=== PATIENT | male | born 1955 | race Caucasian/White ===

== ENCOUNTER 2019-05-26 12:35 | Inpatient (IN) | payer OTHER ==
[2019-05-26] MEDS: ALBUTEROL SULFATE 0.083% NEB 2.5 MG/3 ML AMPUL NEB SCH ×2 (13:02→13:24)
[2019-05-26] MEDS ORDERED: NORMAL SALINE 1000 ML 1,000 ML IV ONE ×2 (13:09→13:58)
[2019-05-26 13:12] LABS: ABSOLUTE BASOPHILS # (AUTO) 0.1 10^3/uL (0.0-0.2); ABSOLUTE LYMPHOCYTES (AUTO) 1.4 10^3/uL (0.5-4.7); ABSOLUTE MONOCYTES (AUTO) 0.9 10^3/uL (0.1-1.4); ABSOLUTE NEUT (AUTO) 8.9 10^3/uL (1.7-8.2); BASOPHILS % (AUTO) 0.9 % (0-2); EOSINOPHILS % (AUTO) 0.4 % (0-6); HEMOGLOBIN 14.9 g/dL (13.5-17.0); LYMPHOCYTES % (AUTO) 12.6 % (13-45); MEAN CORPUSCULAR HEMOGLOBIN 30.6 pg (27.0-33.4); MEAN CORPUSCULAR HGB CONC 33.9 g/dL (32.0-36.0); MEAN CORPUSCULAR VOLUME 90 fl (80-97); MONOCYTES % (AUTO) 8.1 % (3-13); PLATELET COUNT 184 10^3/uL (150-450); RED BLOOD COUNT 4.88 10^6/uL (4.35-5.55); RED CELL DISTRIBUTION WIDTH 13.8 % (11.5-14.0); TOTAL CELLS COUNTED % (AUTO) 100 %; WHITE BLOOD COUNT 11.4 10^3/uL (4.0-10.5)
[2019-05-26 13:23] LABS: PROTHROMBIN TIME 15.3 SEC (11.4-15.4)
[2019-05-26 13:35] LABS: ALBUMIN 4.2 g/dL (3.5-5.0); ALKALINE PHOSPHATASE 92 U/L (38-126); ANION GAP 13 (5-19); ASPARTATE AMINO TRANSFERASE 20 U/L (17-59); BILIRUBIN,DIRECT 0.3 mg/dL (0.0-0.4); BLOOD UREA NITROGEN 17 mg/dL (7-20); CALCIUM 9.3 mg/dL (8.4-10.2); CARBON DIOXIDE 24 mmol/L (22-30); CHLORIDE 99 mmol/L (98-107); GLUCOSE 107 mg/dL (75-110); POTASSIUM 4.4 mmol/L (3.6-5.0); TOTAL PROTEIN 7.3 g/dL (6.3-8.2)
--- NOTE | 2019-05-26 13:55 | RADIOLOGY REPORT (SQ) ---
EXAM DESCRIPTION: CHEST SINGLE VIEW COMPLETED DATE/TIME: 05/26/2019 1:10 pm REASON FOR STUDY: bed 2 abd pain COMPARISON: None. NUMBER OF VIEWS: One view. TECHNIQUE: Single frontal radiographic view of the chest acquired. LIMITATIONS: None. FINDINGS: LUNGS AND PLEURA: No opacities, masses or pneumothorax. No pleural effusion. MEDIASTINUM AND HILAR STRUCTURES: No masses. Contour normal. HEART AND VASCULAR STRUCTURES: Heart enlarged without failure. Normal vasculature. BONES: No acute findings. HARDWARE: CABG. OTHER: No other significant finding. IMPRESSION: No acute findings in the chest. TECHNICAL DOCUMENTATION: JOB ID: [id number] [employer] All Rights Reserved Reading location - IP/workstation name: [email or web address]
[2019-05-26] MEDS ORDERED: ONDANSETRON HCL INJ/PF 4 MG/2 ML SDV IV ONE (13:58)
[2019-05-26] MEDS ORDERED: MORPHINE SULFATE 10 MG/ML INJ IV ONE (13:58)
--- NOTE | 2019-05-26 14:03 | EKG REPORT ---
SEVERITY:- ABNORMAL ECG - WIDE COMPLEX TACHYCARDIA RIGHT BUNDLE BRANCH BLOCK OLD INFERIOR [place] : Confirmed by: James Santos MD 26-May-2019 14:02:20
[2019-05-26 14:40] LABS: VENOUS BLOOD BASE EXCESS -3.6 mmol/L; VENOUS BLOOD PCO2 47.1 mmHg (35-63); VENOUS BLOOD PH 7.31 (7.30-7.42)
--- NOTE | 2019-05-26 16:53 | RADIOLOGY REPORT (SQ) ---
EXAM DESCRIPTION: CT ABD/PELVIS WITH IV ORAL COMPLETED DATE/TIME: 05/26/2019 4:29 pm REASON FOR STUDY: diffuse pain/vomiting COMPARISON: None. TECHNIQUE: CT scan of the abdomen and pelvis performed with intravenous and oral contrast using constantino moe scanning technique with dynamic intravenous contrast injection. Images reviewed with lung, soft t issue, and bone windows. Reconstructed coronal and sagittal MPR images reviewed. Delayed images for e valuation of the urinary system also acquired. All images stored on PACS. All CT scanners at this facility use dose modulation, iterative reconstruction, and/or weight based d osing when appropriate to reduce radiation dose to as low as reasonably achievable (ALARA). [facility]: Dose Right [facility]: CareDose [facility]: Dose Right [facility]: Teradose 4D [facility]: [employer] CONTRAST TYPE AND DOSE: contrast/concentration: Isovue 350.00 mg/ml; Total Contrast Delivered: 100.0 ml; Total Saline Delivered: 72.0 ml RENAL FUNCTION: GFR > 60. RADIATION DOSE: CT Rad equipment meets quality standard of care and radiation dose reduction techniq ues were employed. CTDIvol: 24.1 - 24.1 mGy. DLP: 2803 mGy-cm. . LIMITATIONS: None. FINDINGS: LOWER CHEST: Cardiomegaly. LIVER: Normal size. No masses. No dilated ducts. SPLEEN: Normal size. No focal lesions. PANCREAS: No masses. No significant calcifications. No adjacent inflammation or peripancreatic fluid collections. Pancreatic duct not dilated. GALLBLADDER: No identified stones by CT criteria. No inflammatory changes to suggest cholecystitis. ADRENAL GLANDS: No significant masses or asymmetry. RIGHT KIDNEY AND URETER: No solid masses. No significant calcifications. No hydronephrosis or hyd roureter. LEFT KIDNEY AND URETER: No solid masses. No significant calcifications. No hydronephrosis or hydr oureter. AORTA AND VESSELS: Severe atherosclerosis. Estimated 50% stenosis of the origin of the SMA and fei c arteries. No aortic aneurysm. RETROPERITONEUM: No retroperitoneal adenopathy, hemorrhage or masses. BOWEL AND PERITONEAL CAVITY: Mild gastric distention. No dilated loops. Sigmoid diverticulosis. No ascites or free air. APPENDIX: Not visualized. PELVIS: No significant masses. Normal bladder. No free fluid. ABDOMINAL WALL: Small fat containing umbilical hernia. BONES: Nothing acute. OTHER: No other significant finding. IMPRESSION: Mild gastric distention. No dilated small bowel loops. Diverticulosis without evidence of diverticulitis. Severe atherosclerosis. TECHNICAL DOCUMENTATION: JOB ID: [id number] Quality ID # [id number]: Final reports with documentation of one or more dose reduction techniques (e.g., Au tomated exposure control, adjustment of the mA and/or kV according to patient size, use of iterative reconstruction technique) 2010 [employer]- All Rights Reserved Reading location - IP/workstation name: [email or web address]
[2019-05-26 17:17] LABS: APPEARANCE,URINE CLEAR; BILIRUBIN,URINE NEGATIVE (NEGATIVE); COLOR,URINE YELLOW; GLUCOSE, URINE NEGATIVE (NEGATIVE); KETONES,URINE 20 mg/dL (NEGATIVE); PROTEIN,URINE 30 mg/dL (NEGATIVE); URINE SPECIFIC GRAVITY 1.018
[2019-05-26] MEDS ORDERED: METOPROLOL TARTRATE PF/INJ 5 MG/5 ML SDV IV ONE (18:30)
[2019-05-26 18:34] LABS: URINE AMPHETAMINES SCREEN NEGATIVE; URINE BARBITURATES SCREEN NEGATIVE; URINE BENZODIAZEPINES SCREEN NEGATIVE; URINE COCAINE SCREEN NEGATIVE; URINE METHADONE SCREEN NEGATIVE; URINE PHENCYCLIDINE SCREEN NEGATIVE
[2019-05-26 18:35] LABS: URINE MARIJUANA (THC) SCREEN UNCONFIRMED POSITIVE
[2019-05-26] MEDS ORDERED: MAG HYDROX/AL HYDROX/SIMETH SUSP 30 ML UDCUP PO PRN (18:53)
[2019-05-26] MEDS ORDERED: MAGNESIUM HYDROXIDE SUSP 30 ML UDCUP PO PRN (18:53)
[2019-05-26] MEDS ORDERED: ACETAMINOPHEN 325 MG TABLET PO PRN (18:53)
--- NOTE | 2019-05-26 18:55 | ER Document Report ---
ED General - General Chief Complaint: Nausea/Vomiting Stated Complaint: NAUSEA/VOMITING Time Seen by Provider: 05/26/19 13:48 Primary Care Provider: [facility] [Primary Care Provider] - Follow up as needed Mode of Arrival: Ambulatory Information source: Patient - HPI Notes: Patient arrives and complains of abdominal pain and distention. He states that since Thanks of this year he has had intermittent abdominal pain with vomiting. He states that most days he is unable to eat due to nausea and vomiting. He states that today he was at urgent care and they made him come to through the emergency department due to an elevated heart rate. He states he is never had an elevated heart rate previously that he knows of. He states he does have a blind escort at the [facility] in [place]. He states that he sees this doctor because he had to have 2 stents placed 10 years ago. He denies being on any type of blood thinners. He states he does have problems with high blood pressure. His abdominal pain is intermittent and crampy. He states that it feels like "grease in my belly". He states this makes him vomit. It does appear to get worse with eating and better with rest. The pain does radiate throughout his abdomen. He denies any chest pain or shortness of breath. - Related Data Allergies/Adverse Reactions: No Known Allergies Allergy (Unverified 05/26/19 14:09) Home Medications: pt unable to recall at this time Past Medical History - General Information source: Patient - Social History Smoking Status: Former Smoker Frequency of alcohol use: None Drug Abuse: None Family History: Reviewed & Not Pertinent Patient has suicidal ideation: No Patient has homicidal ideation: No Review of Systems - Review of Systems Constitutional: Malaise, Weakness. denies: Chills, Fever Cardiovascular: Palpitations, Heart racing. denies: Chest pain Respiratory: Cough, Short of breath - Mild chronic Gastrointestinal: Abdominal pain, Vomiting -: Yes All other systems reviewed and negative Physical Exam - Vital signs Vitals: Pulse Ox 91 L 05/26/19 12:51 Interpretation: Tachycardic - General General appearance: Appears well, Alert In distress: None - HEENT Head: Normocephalic, Atraumatic Eyes: Normal Pupils: PERRL - Respiratory Respiratory status: No respiratory distress Chest status: Nontender Breath sounds: Wheezing Chest palpation: Normal - Cardiovascular Rhythm: Regular, Tachycardia Heart sounds: Normal auscultation Murmur: No - Abdominal Inspection: Other - Has easily reducible tender umbilical hernia Distension: Distended Bowel sounds: Normal Tenderness: Tender - Moderate and diffuse. No rebound or guarding. Organomegaly: No organomegaly - Back Back: Normal, Nontender - Extremities General upper extremity: Normal inspection, Nontender, Normal color, Normal ROM, Normal temperature General lower extremity: Normal inspection, Nontender, Normal color, Normal ROM, Normal temperature, Normal weight bearing. No: Shantal's sign - Neurological Neuro grossly intact: Yes Cognition: Normal Orientation: AAOx4 Eliseo Coma Scale Eye Opening: Spontaneous [place] Coma Scale Verbal: Oriented [place] Coma Scale Motor: Obeys Commands Eliseo Coma Scale Total: 15 Speech: Normal Motor strength normal: LUE, RUE, LLE, RLE Sensory: Normal - Psychological Associated symptoms: Normal affect, Normal mood - Skin Skin Temperature: Warm Skin Moisture: Dry Skin Color: Normal Course - Re-evaluation Re-evalutation: 05/26/19 18:53 Patient presents with tachycardia and abdominal pain. Patient did spontaneously convert to a normal sinus rhythm with a rate of 67 after he is here approximate 5 hours. The EKG and presentation seems to be consistent with atrial flutter with right bundle branch block. I did staff this with the blind escort, Dr. Jackson, who will see the patient tomorrow. In regards to the patient's abdominal pain no obvious source could be found. There is no evidence of any type of obstruction or infection. If patient is having arrhythmias possibly patient is having some ischemia when he eats which could be causing the cramping and pain. However this would not explain the persistent vomiting that patient states. His labs do not show significant dehydration or malnutrition. I have discussed the case with the hospitalist to admit the patient for further evaluation of the arrhythmia, persistent wheezing, and persistent abdominal pain with inability to eat. - Vital Signs Vital signs: Temp Pulse Resp BP Pulse Ox 20 106/90 H 92 05/26/19 14:01 05/26/19 14:01 05/26/19 14:01 - Laboratory Result Diagrams: 05/26/19 12:55 05/26/19 12:55 Laboratory results interpreted by me: 05/26/19 05/26/19 05/26/19 12:55 12:55 16:43 WBC 11.4 H Lymph % (Auto) 12.6 L Absolute Neuts (auto) 8.9 H Sodium 135.8 L Urine Protein 30 H Urine Ketones 20 H Urine Urobilinogen 4.0 H - Diagnostic Test Radiology reviewed: Image reviewed, Reports reviewed - EKG Interpretation by Me Rate: Tachycardia - 140 Rhythm: A.Flutter [place]/QRS: RBBB Discharge - Discharge Clinical Impression: Atrial flutter with rapid ventricular response, Right bundle branch block Abdominal pain Qualifiers: Abdominal location: generalized Qualified Code(s): R10.84 - Generalized abdominal pain Vomiting Qualifiers: Vomiting type: unspecified Vomiting Intractability: non-intractable Nausea presence: with nausea Qualified Code(s): R11.2 - Nausea with vomiting, unspecified Condition: Stable Disposition: ADMITTED INPATIENT Admitting Provider: Kristin (Hospitalist) - [facility] Unit Admitted: [facility]errals: [facility] [Primary Care Provider] - Follow up as needed
--- NOTE | 2019-05-26 19:18 | PDOC H&P ---
History of Present Illness Admission Date/PCP: [facility] Patient complains of: nausea, abdominal discomfort History of Present Illness: ORESTES FELIX is a 63 year old male with a past medical history of COPD, chronic respiratory failure (should be on home O2, but frequently noncompliant per patient), CHF, hypertension, hyperlipidemia, tobacco use with continuous use, opiate dependent chronic pain, neuropathy, and obesity who presented to the emergency department today from urgent care where he was being seen for a splinter in his left index finger with report of rapid heart rate. Evaluation in the emergency department revealed persistent tachycardia of 1 30-1 40, acceptable blood pressure, hypoxia on room air, mild leukocytosis (WBCs 11), unremarkable chemistry, indeterminate troponin of 0.033, TSH is pending, urinalysis demonstrates mild dehydration, and toxicology is positive for opiates which is expected and THC. Chest x-ray was negative for acute findings, abdominal/pelvic CT showed mild gastric distention without small bowel loops, diverticulosis without evidence of diverticulitis and severe arthrosclerosis. EKG showed a wide-complex ta chycardia with a right bundle branch block. The patient was provided saline bolus x2 L and referred to the hospitalist service for admission and management of the above-stated complaints and findings . The ED provider did speak with Dr. Darrel Jackson who advised the patient was likely in a flutter with a rapid rate. Dr. Jackson will see the patient tomorrow morning in consult. Past Medical History Cardiac Medical History: Reports: Congestive Heart Failure, Coronary Artery Disease - CABG x3, Hyperlipidema, Hypertension Pulmonary Medical History: Reports: Chronic Obstructive Pulmonary Disease (COPD), Respiratory Failure - Chronic EENT Medical History: Reports: None Neurological Medical History: Reports: None Endocrine Medical History: Reports: Obesity Denies: Diabetes Mellitus Type 2, Hypothyroidism Renal/ Medical History: Reports: None Malignancy Medical History: Reports: None GI Medical History: Reports: Gastroesophageal Reflux Disease Musculoskeltal Medical History: Reports: Arthritis Psychiatric Medical History: Reports: Substance Abuse, Tobacco Dependency Denies: Depression Hematology: Reports: None Infectious Medical History: Reports: None Past Surgical History Past Surgical History: Reports: Coronary Artery Bypass Graft Social History Information Source: Patient Lives with: Friend Smoking Status: Current Every Day Smoker Cigarettes Packs Per Day: 0.2 Electronic Cigarette use?: No Frequency of Alcohol Use: None Hx Recreational Drug Use: Yes Drugs: Marijuana Hx Prescription Drug Abuse: No - Advance Directive Resuscitation Status: Full Code Surrogate healthcare decision maker:: The patient's son. Family History Family History: Reviewed & Not Pertinent Parental Family History Reviewed: Yes Children Family History Reviewed: Yes Sibling(s) Family History Reviewed.: Yes Medication/Allergy Allergies/Adverse Reactions: No Known Allergies Allergy (Unverified 05/26/19 14:09) Review of Systems Constitutional: PRESENT: anorexia, weight loss - ~20 lbs/3 months. ABSENT: chills, fever(s), headache(s), weight gain Eyes: ABSENT: visual disturbances Ears: ABSENT: hearing changes Cardiovascular: ABSENT: chest pain, dyspnea on exertion, edema, orthropnea, palpitations Respiratory: ABSENT: cough, hemoptysis Gastrointestinal: PRESENT: abdominal pain, diarrhea, nausea, vomiting. ABSENT: constipation, hematemesis, hematochezia Genitourinary: ABSENT: dysuria, hematuria Musculoskeletal: ABSENT: joint swelling Integumentary: ABSENT: rash, wounds Neurological: ABSENT: abnormal gait, abnormal speech, confusion, dizziness, focal weakness, syncope Psychiatric: ABSENT: anxiety, depression, homidical ideation, suicidal ideation Endocrine: ABSENT: cold intolerance, heat intolerance, polydipsia, polyuria Hematologic/Lymphatic: ABSENT: easy bleeding, easy bruising Physical Exam Vital Signs: Temp Pulse Resp BP Pulse Ox 20 113/76 95 05/26/19 18:35 05/26/19 18:35 05/26/19 18:35 Intake & Output 05/25/19 05/26/19 05/27/19 06:59 06:59 06:59 Intake Total 1999 Balance 1999 Weight 110.223 kg General appearance: PRESENT: no acute distress, cooperative, disheveled, obese, well-developed, well-nourished Head exam: PRESENT: atraumatic, normocephalic Eye exam: PRESENT: conjunctiva pink, EOMI, PERRLA. ABSENT: scleral icterus Ear exam: PRESENT: normal external ear exam Mouth exam: PRESENT: dry mucosa, tongue midline Teeth exam: PRESENT: poor dentation Neck exam: ABSENT: carotid bruit, JVD, lymphadenopathy, thyromegaly Respiratory exam: PRESENT: prolonged expiratory phas, rhonchi - throughout, symmetrical, tachypnea, wheezes, other - supplemental oxygen via NC. ABSENT: rales Cardiovascular exam: PRESENT: irregular rhythm, +S1, +S2, other - Initially regular tachycardia rate 140s; spontaneously aborted to irregular rate 60s. ABSENT: diastolic murmur, rubs, systolic murmur Pulses: PRESENT: normal dorsalis pedis pul Vascular exam: PRESENT: normal capillary refill GI/Abdominal exam: PRESENT: distended, normal bowel sounds, soft, tenderness. ABSENT: guarding, mass, organolmegaly, rebound Rectal exam: PRESENT: deferred Extremities exam: PRESENT: full ROM. ABSENT: calf tenderness, clubbing, pedal edema Neurological exam: PRESENT: alert, awake, oriented to person, oriented to place, oriented to time, oriented to situation, CN II-XII grossly intact. ABSENT: motor sensory deficit Psychiatric exam: PRESENT: appropriate affect, normal mood. ABSENT: homicidal ideation, suicidal ideation Skin exam: PRESENT: dry, intact, warm. ABSENT: cyanosis, rash Results Laboratory Results: 05/26/19 12:55 05/26/19 12:55 05/26/19 05/26/19 05/26/19 12:55 12:55 14:23 WBC 11.4 H RBC 4.88 Hgb 14.9 Hct 44.0 MCV 90 MCH 30.6 MCHC 33.9 RDW 13.8 Plt Count 184 Seg Neutrophils % 78.0 VBG pH 7.31 VBG pCO2 47.1 VBG HCO3 23.0 VBG Base Excess -3.6 Sodium 135.8 L Potassium 4.4 Chloride 99 Carbon Dioxide 24 Anion Gap 13 BUN 17 Creatinine 1.02 Est GFR ( Amer) > 60 Glucose 107 Calcium 9.3 Total Bilirubin 1.0 AST 20 Alkaline Phosphatase 92 Total Protein 7.3 Albumin 4.2 Urine Color Urine Appearance Urine pH Ur Specific [place] Urine Protein Urine Glucose (UA) Urine Ketones Urine Blood Urine RBC (Auto) 05/26/19 16:43 WBC RBC Hgb Hct MCV MCH MCHC RDW Plt Count Seg Neutrophils % VBG pH VBG pCO2 VBG HCO3 VBG Base Excess Sodium Potassium Chloride Carbon Dioxide Anion Gap BUN Creatinine Est GFR ( Amer) Glucose Calcium Total Bilirubin AST Alkaline Phosphatase Total Protein Albumin Urine Color YELLOW Urine Appearance CLEAR Urine pH 6.0 Ur Specific [place] 1.018 Urine Protein 30 H Urine Glucose (UA) NEGATIVE Urine Ketones 20 H Urine Blood NEGATIVE Urine RBC (Auto) 0 05/26/19 12:55 Troponin I 0.033 Impressions: Abdomen/Pelvis CT 05/26/19 00:00 IMPRESSION: Mild gastric distention. No dilated small bowel loops. Diverticulosis without evidence of diverticulitis. Severe atherosclerosis. Chest X-Ray 05/26/19 12:51 IMPRESSION: No acute findings in the chest. Assessment and Plan - Diagnosis (1) Atrial flutter with rapid ventricular response Is this a current diagnosis for this admission?: Yes Plan: The patient presented to the emergency department with a wide-complex tachycardia; likely a flutter with a rapid ventricular response and underlying right bundle branch block. Upon my entering the room, I noted the patient to spontaneously abort to an irregular rhythm with heart rate in the 60s. Repeat EKG pending. TSH pending. Patient is admitted to [facility] probability of requiring IV diltiazem overnight. I did notice that the patient's heart rate increase and became more irregular during my exam. Start full dose Lovenox; patient will likely be discharged on chronic anticoagulation. Diltiazem 30 mg p.o. every 6 hours with holding parameters. Daily aspirin and statin therapy. Dr. Jackson has been consulted; he will be available to see the patient tomorrow morning. (2) COPD exacerbation Is this a current diagnosis for this admission?: Yes Plan: The patient is provided supplemental oxygen as needed to maintain saturations greater than 88%. He is scheduled and as needed nebulizer treatments. P.o. prednisone. Mucinex twice daily. Flutter valve to bedside. No indications for antibiotic therapy at this time. (3) CHF (congestive heart failure) Is this a current diagnosis for this admission?: Yes Plan: Patient with history of CHF; No echocardiogram on file. Likely diastolic given cardiomegaly on imaging and mild peripheral edema. We will resume his home medication regiment once reconciled. Dr. Jackson has been consulted for his tachyarrhythmia. Cardiac diet. Daily weights with strict I&O's. (4) Abdominal pain Qualifiers: Abdominal location: generalized Qualified Code(s): R10.84 - Generalized abdominal pain Is this a current diagnosis for this admission?: Yes Plan: Unclear etiology. CT imaging shows mild gastric distention. No obstruction noted. We will avoid Zofran secondary to prolonged QTC. PRN Phenergan as needed for nausea. Consider nuc med gastric follow-through if does not improve. (5) Right bundle branch block Is this a current diagnosis for this admission?: Yes - Time Time Spent with patient: 35 or more minutes Medications reviewed and adjusted accordingly: Yes Anticipated discharge: Home Within: within 24 hours
[2019-05-26] MEDS: PROMETHAZINE HCL INJ 25 MG/1 ML VIAL IV PRN (19:42)
[2019-05-26] MEDS: LEVALBUTEROL HCL NEB 1.25 MG/3 ML AMPUL NEB SCH (19:44)
[2019-05-26] MEDS: IPRATROPIUM BROMIDE 0.02% NEB 0.5 MG/2.5 ML AMPUL NEB SCH (19:44)
[2019-05-26] MEDS: NORMAL SALINE 1000 ML 1,000 ML IV PRN (19:45)
[2019-05-26] MEDS ORDERED: PANTOPRAZOLE SODIUM 40 MG VIAL IV ONE (20:00)
[2019-05-26] MEDS ORDERED: METHYLPREDNISOLONE INJ 125 MG/2 ML SDV IV ONE (20:00)
[2019-05-26] MEDS ORDERED: HEPARIN SOD (PORCINE) 5,000 UNIT/ML 1 ML VIAL SUBCUT SCH (22:00)
[2019-05-26] MEDS: DILTIAZEM HCL 30 MG TABLET PO SCH (23:40)
[2019-05-26] MEDS: ENOXAPARIN SODIUM INJ 120 MG/0.8 ML DISP.SYRIN SUBCUT SCH (23:40)
[2019-05-26] MEDS: ATORVASTATIN CALCIUM 20 MG TABLET PO SCH (23:40)
[2019-05-26] MEDS: GUAIFENESIN 600 MG TABLET.SA PO SCH (23:40)
[2019-05-27] MEDS ORDERED: DILTIAZEM HCL 30 MG TABLET PO SCH
[2019-05-27] MEDS: PROMETHAZINE HCL INJ 25 MG/1 ML VIAL IV PRN (00:08)
[2019-05-27] MEDS: OXYCODONE-ACETAMINOPHEN 5-325 MG TABLET PO PRN ×6 (00:30→22:18)
[2019-05-27] MEDS: LEVALBUTEROL HCL NEB 1.25 MG/3 ML AMPUL NEB SCH ×2 (02:11→07:53)
[2019-05-27] MEDS: IPRATROPIUM BROMIDE 0.02% NEB 0.5 MG/2.5 ML AMPUL NEB SCH ×2 (02:11→07:53)
[2019-05-27] MEDS ORDERED: METOPROLOL TARTRATE 25 MG TABLET PO ONE (03:00)
[2019-05-27] MEDS ORDERED: QUETIAPINE FUMARATE 100 MG TABLET PO ONE (03:00)
[2019-05-27] MEDS ORDERED: BACLOFEN 10 MG TABLET PO ONE (03:00)
[2019-05-27] MEDS ORDERED: GABAPENTIN 400 MG CAPSULE PO ONE (03:00)
[2019-05-27] MEDS: DILTIAZEM HCL 30 MG TABLET PO SCH (05:05)
[2019-05-27] MEDS: PANTOPRAZOLE SODIUM 40 MG TABLET.DR PO SCH ×3 (05:05→17:24)
[2019-05-27] MEDS: NORMAL SALINE 1000 ML 1,000 ML IV PRN ×2 (05:06→13:21)
--- NOTE | 2019-05-27 07:09 | EKG REPORT ---
SEVERITY:- ABNORMAL ECG - SINUS RHYTHM PROBABLE LEFT ATRIAL ABNORMALITY RIGHT BUNDLE BRANCH BLOCK INFERIOR INFARCT, AGE INDETERMINATE : Confirmed by: James Santos MD 27-May-2019 07:08:49
[2019-05-27] MEDS ORDERED: FUROSEMIDE 20 MG TABLET PO SCH (08:00)
[2019-05-27 08:13] LABS: HEMATOCRIT 39.6 % (37.9-51.0); HEMOGLOBIN 13.2 g/dL (13.5-17.0); MEAN CORPUSCULAR HEMOGLOBIN 30.2 pg (27.0-33.4); MEAN CORPUSCULAR HGB CONC 33.4 g/dL (32.0-36.0); MEAN CORPUSCULAR VOLUME 91 fl (80-97); PLATELET COUNT 154 10^3/uL (150-450); RED BLOOD COUNT 4.38 10^6/uL (4.35-5.55); RED CELL DISTRIBUTION WIDTH 13.8 % (11.5-14.0); WHITE BLOOD COUNT 6.6 10^3/uL (4.0-10.5)
[2019-05-27 08:44] LABS: ANION GAP 12 (5-19); BLOOD UREA NITROGEN 12 mg/dL (7-20); CARBON DIOXIDE 21 mmol/L (22-30); CHLORIDE 105 mmol/L (98-107); GLUCOSE 162 mg/dL (75-110); POTASSIUM 4.8 mmol/L (3.6-5.0)
[2019-05-27] MEDS: GUAIFENESIN 600 MG TABLET.SA PO SCH ×2 (09:33→22:18)
[2019-05-27] MEDS: OMEGA-3 ACID ETHYL ESTERS 1 GM CAPSULE PO SCH ×2 (09:34→18:18)
[2019-05-27] MEDS: BACLOFEN 10 MG TABLET PO SCH ×2 (09:34→17:24)
[2019-05-27] MEDS: METOPROLOL TARTRATE 25 MG TABLET PO SCH ×2 (09:34→17:24)
[2019-05-27] MEDS: ENOXAPARIN SODIUM INJ 120 MG/0.8 ML DISP.SYRIN SUBCUT SCH (09:35)
[2019-05-27] MEDS: POTASSIUM CHLORIDE 10 MEQ TABLET.ER PO SCH ×2 (09:35→17:25)
--- NOTE | 2019-05-27 09:40 | PDOC PROGRESS REPORT ---
Subjective Progress Note for:: 05/27/19 Subjective:: 05/27/2019-no complaints Reason For Visit: COPD EXACERBATION, A FLUTTER RVR, GASTRITIS Physical Exam Vital Signs: Temp Pulse Resp BP Pulse Ox 97.9 F 75 20 127/78 H 93 05/27/19 07:16 05/27/19 07:53 05/27/19 07:53 05/27/19 07:16 05/27/19 07:53 Intake & Output 05/26/19 05/27/19 05/28/19 06:59 06:59 06:59 Intake Total 3000 Output Total 1925 Balance 1075 Weight 108.5 kg General appearance: PRESENT: no acute distress, well-developed, well-nourished Neck exam: ABSENT: carotid bruit, JVD, lymphadenopathy, thyromegaly Respiratory exam: PRESENT: decreased breath sounds, symmetrical, unlabored, wheezes Cardiovascular exam: PRESENT: RRR, +S1, +S2 Pulses: PRESENT: +1 pedal pulses bilateral Vascular exam: PRESENT: normal capillary refill GI/Abdominal exam: PRESENT: normal bowel sounds, soft. ABSENT: distended, guarding, mass, organolmegaly, rebound, tenderness Extremities exam: PRESENT: full ROM. ABSENT: calf tenderness, clubbing, pedal edema Neurological exam: PRESENT: alert, awake, oriented to person, oriented to place, oriented to time, oriented to situation, CN II-XII grossly intact. ABSENT: motor sensory deficit Psychiatric exam: PRESENT: appropriate affect, normal mood. ABSENT: homicidal ideation, suicidal ideation Skin exam: PRESENT: dry, intact, warm. ABSENT: cyanosis, rash Results Laboratory Results: 05/27/19 08:02 05/27/19 08:02 05/26/19 05/26/19 05/26/19 12:55 12:55 12:55 WBC 11.4 H RBC 4.88 Hgb 14.9 Hct 44.0 MCV 90 MCH 30.6 MCHC 33.9 RDW 13.8 Plt Count 184 Seg Neutrophils % 78.0 VBG pH VBG pCO2 VBG HCO3 VBG Base Excess Sodium 135.8 L Potassium 4.4 Chloride 99 Carbon Dioxide 24 Anion Gap 13 BUN 17 Creatinine 1.02 Est GFR ( Amer) > 60 Glucose 107 Calcium 9.3 Total Bilirubin 1.0 AST 20 Alkaline Phosphatase 92 Total Protein 7.3 Albumin 4.2 TSH 2.05 Urine Color Urine Appearance Urine pH Ur Specific Mamou Urine Protein Urine Glucose (UA) Urine Ketones Urine Blood Urine RBC (Auto) 05/26/19 05/26/19 05/27/19 14:23 16:43 08:02 WBC 6.6 RBC 4.38 Hgb 13.2 L Hct 39.6 MCV 91 MCH 30.2 MCHC 33.4 RDW 13.8 Plt Count 154 Seg Neutrophils % VBG pH 7.31 VBG pCO2 47.1 VBG HCO3 23.0 VBG Base Excess -3.6 Sodium Potassium Chloride Carbon Dioxide Anion Gap BUN Creatinine Est GFR ( Amer) Glucose Calcium Total Bilirubin AST Alkaline Phosphatase Total Protein Albumin TSH Urine Color YELLOW Urine Appearance CLEAR Urine pH 6.0 Ur Specific Mamou 1.018 Urine Protein 30 H Urine Glucose (UA) NEGATIVE Urine Ketones 20 H Urine Blood NEGATIVE Urine RBC (Auto) 0 05/27/19 08:02 WBC RBC Hgb Hct MCV MCH MCHC RDW Plt Count Seg Neutrophils % VBG pH VBG pCO2 VBG HCO3 VBG Base Excess Sodium 138.3 Potassium 4.8 Chloride 105 Carbon Dioxide 21 L Anion Gap 12 BUN 12 Creatinine 0.69 Est GFR ( Amer) > 60 Glucose 162 H Calcium 9.0 Total Bilirubin AST Alkaline Phosphatase Total Protein Albumin TSH Urine Color Urine Appearance Urine pH Ur Specific Mamou Urine Protein Urine Glucose (UA) Urine Ketones Urine Blood Urine RBC (Auto) 05/26/19 12:55 Troponin I 0.033 Impressions: Abdomen/Pelvis CT 05/26/19 00:00 IMPRESSION: Mild gastric distention. No dilated small bowel loops. Diver ticulosis without evidence of diverticulitis. Severe atherosclerosis. Chest X-Ray 05/26/19 12:51 IMPRESSION: No acute findings in the chest. Assessment and Plan - Diagnosis (1) Atrial flutter with rapid ventricular response Is this a current diagnosis for this admission?: Yes Plan: The patient presented to the emergency department with a wide-complex tac hycardia; likely a flutter with a rapid ventricular response and underlying right bundle branch block. Upon my entering the room, I noted the patient to spontaneously abort to an irregular rhythm with heart rate in the 60s. Repeat EKG pending. TSH pending. Patient is admitted to [facility] probability of requiring IV diltiazem overnight. I did notice that the patient's heart rate increase and became more irregular during my exam. Start full dose Lovenox; patient will likely be discharged on chronic anticoagulation. Diltiazem 30 mg p.o. every 6 hours with holding parameters. Daily aspirin and statin therapy. Dr. Jackson has been consulted; he will be available to see the patient tomorrow morning. 05/27/2019-patient converted to sinus rhythm. I have DC'd Cardizem place patient on sotalol 40 mg p.o. twice daily. I will obtain a daily EKG to measure QTc interval. Patient will continue aspirin and statin dosing. DC Lovenox Place patient on Eliquis 5 mill grams p.o. twice daily (2) Abdominal pain Qualifiers: Abdominal location: generalized Qualified Code(s): R10.84 - Generalized abdominal pain Is this a current diagnosis for this admission?: Yes Plan: Unclear etiology. CT imaging shows mild gastric distention. No obstruction noted. We will avoid Zofran secondary to prolonged QTC. PRN Phenergan as needed for nausea. Consider nuc med gastric follow-through if does not improve. 05/27/2019-improved. Patient is complaining of no abdominal pain this morning. Continue to follow (3) CHF (congestive heart failure) Is this a current diagnosis for this admission?: Yes Plan: Patient with history of CHF; No echocardiogram on file. Likely diastolic given cardiomegaly on imaging and mild peripheral edema. We will resume his home medication regiment once reconciled. Dr. Jackson has been consulted for his tachyarrhythmia. Cardiac diet. Daily weights with strict I&O's. 05/27/2019-unknown type. Await further regulation per cardiology. (4) COPD exacerbation Is this a current diagnosis for this admission?: Yes Plan: The patient is provided supplemental oxygen as needed to maintain saturations greater than 88%. He is scheduled and as needed nebulizer treatments. P.o. prednisone. Mucinex twice daily. Flutter valve to bedside. No indications for antibiotic therapy at this time. 05/27/2019-continue submental oxygen as needed. Prednisone. Bronchodilators. (5) Right bundle branch block Is this a current diagnosis for this admission?: Yes Plan: 05/27/2019-stable continue to follow daily EKGs - Time Time Spent with patient: 15-24 minutes - Inpatient Certification Based on my medical assessment, after consideration of the patient's comorbidities, presenting symptoms, or acuity I expect that the services needed warrant INPATIENT care.: Yes I certify that my determination is in accordance with my understanding of Medicare's requirements for reasonable and necessary INPATIENT services [42 CFR 412.3e].: Yes Medical Necessity: Significant Comorbidiites Make Outpatient Treatment Too Risky, Need Close Monitoring Due to Risk of Patient Decompensation, Need For Continuous Telemetry Monitoring
[2019-05-27] MEDS ORDERED: LISINOPRIL 5 MG TABLET PO SCH (10:00)
[2019-05-27] MEDS ORDERED: PREDNISONE 20 MG TABLET PO SCH (10:00)
[2019-05-27] MEDS ORDERED: DOCUSATE SODIUM 100 MG CAPSULE PO SCH (10:00)
[2019-05-27] MEDS ORDERED: SOTALOL HCL 80 MG TABLET PO SCH (10:00)
[2019-05-27] MEDS ORDERED: ASPIRIN 81 MG TABLET, ENT COATED PO SCH (10:00)
[2019-05-27] MEDS ORDERED: ASPIRIN 81 MG TABLET, CHEWABLE PO SCH (10:00)
[2019-05-27] MEDS ORDERED: NIFEDIPINE 30 MG TAB.ER.24 PO SCH (10:00)
[2019-05-27] MEDS: APIXABAN 5 MG TABLET PO SCH ×2 (11:15→17:24)
[2019-05-27] MEDS: GABAPENTIN 400 MG CAPSULE PO SCH ×2 (13:20→22:18)
--- NOTE | 2019-05-27 20:35 | PDOC CONSULTATION ---
Consultation Consult Date: 05/27/19 Provider Consulted: BOB FERNANDEZ Consult reason:: Abnormal EKG History of Present Illness Admission Date/PCP: 05/26/19 19:03 [facility] Patient complains of: Splinter injury, dizziness, History of Present Illness: ORESTES FELIX is a 63 year old male with medical history active problems as follows 1. Coronary artery disease 2. Coronary artery bypass graft 3. Systemic hypertension 63-year-old male with reported coronary artery bypass graft approximately 10 years ago and during. He presented to urgent care with complaints of splinter injury to left upper extremity. At that time he was noted to be tachycardic and urgent care referred him to the hospital. Patient does not report any particular symptoms other than occasional dizziness. At the time of presentation to the emergency room he was noted to be in tachycardia with a right bundle branch block. Since admission to the hospital he is converted to sinus rhythm with a right bundle branch block. No symptoms are reported. There is no prior history of any atrial arrhythmias including atrial fibrillation. Patient has upcoming follow-up at the [facility]. Past Medical History Cardiac Medical History: Reports: Congestive Heart Failure, Coronary Artery Disease - CABG x3, Hyperlipidema, Hypertension Pulmonary Medical History: Reports: Chronic Obstructive Pulmonary Disease (COPD), Respiratory Failure - Chronic EENT Medical History: Reports: None Neurological Medical History: Reports: None Endocrine Medical History: Reports: Obesity Denies: Diabetes Mellitus Type 2, Hypothyroidism Renal/ Medical History: Reports: None Malignancy Medical History: Reports: None GI Medical History: Reports: Gastroesophageal Reflux Disease Musculoskeltal Medical History: Reports: Arthritis Psychiatric Medical History: Reports: Substance Abuse, Tobacco Dependency Denies: Depression Hematology: Reports: None Infectious Medical History: Reports: None Past Surgical History Past Surgical History: Reports: Coronary Artery Bypass Graft Social History Lives with: Friend Smoking Status: Current Every Day Smoker Cigarettes Packs Per Day: 0.2 Electronic Cigarette use?: No Frequency of Alcohol Use: None Hx Recreational Drug Use: Yes Drugs: Marijuana Hx Prescription Drug Abuse: No - Advance Directive Resuscitation Status: Full Code Family History Family History: Reviewed & Not Pertinent Parental Family History Reviewed: No Children Family History Reviewed: NA Sibling(s) Family History Reviewed.: NA Medication/Allergy Home Medications: Albuterol Sulfate [Proair Hfa Inhalation Aerosol 8.5 gm Mdi] 200 puff IH QIDP PRN 05/27/19 Albuterol Sulfate [Proventil 0.5% Neb 2.5 mg/0.5 ml Vial.neb] 2.5 mg NEB RTQID 05/27/19 Aspirin [Adult Low Dose Aspirin EC] 81 mg PO DAILY 05/27/19 Baclofen [Baclofen 10 mg Tablet] 5 mg PO TIDP PRN 05/27/19 Budesonide/Formoterol Fumarate [Symbicort Hfa 160-4.5 Mcg Inhaler 6 gm] 2 puff IH Q12 05/27/19 Furosemide [Lasix 20 mg Tablet] 20 mg PO DAILY 05/27/19 Gabapentin [Neurontin 300 mg Capsule] 600 mg PO TIDP PRN 05/27/19 Hydroxyzine HCl [Atarax 10 mg Tablet] 20 mg PO DAILYP PRN 05/27/19 Lisinopril [Prinivil 2.5 mg Tablet] 2.5 mg PO DAILY 05/27/19 Lovastatin [Altoprev] 10 mg PO DAILY 05/27/19 Nifedipine [Nifedipine ER] 60 mg PO DAILY 05/27/19 [place]-3S/Dha/Epa/Fish Oil [Fish Oil 1,000 mg Softgel] 2 each PO BID 05/27/19 Omeprazole 20 mg PO BID 05/27/19 Potassium Chloride 10 meq PO BID 05/27/19 Quetiapine Fumarate [Seroquel] 400 mg PO QHS 05/27/19 Sennosides/Docusate Sodium [Docusate Sodium-Senna Tablet] 1 each PO DAILYP PRN 05/27/19 Sodium Chloride For Inhalation [Sodium Chloride] 4 ml IH QIDP PRN 05/27/19 Allergies/Adverse Reactions: No Known Allergies Allergy (Unverified 05/26/19 14:09) Review of Systems Cardiovascular: PRESENT: as per HPI Respiratory: PRESENT: as per HPI Integumentary: PRESENT: as per HPI, other Physical Exam Vital Signs: Temp Pulse Resp BP Pulse Ox 98.1 F 64 20 104/58 L 94 05/27/19 19:34 05/27/19 19:34 05/27/19 19:34 05/27/19 19:34 05/27/19 19:34 Intake & Output 05/26/19 05/27/19 05/28/19 06:59 06:59 06:59 Intake Total 3000 2620 Output Total 1925 750 Balance 1075 1870 Weight 108.5 kg General appearance: PRESENT: no acute distress, cooperative, obese Head exam: PRESENT: atraumatic, normocephalic Eye exam: PRESENT: conjunctiva pink, EOMI Ear exam: PRESENT: normal external ear exam Mouth exam: PRESENT: moist Respiratory exam: PRESENT: unlabored Cardiovascular exam: PRESENT: +S1, +S2, other - Ejection systolic murmur in the aortic area, healed sternotomy scar Pulses: PRESENT: normal radial pulses Vascular exam: PRESENT: normal capillary refill GI/Abdominal exam: PRESENT: distended, soft Rectal exam: PRESENT: deferred Musculoskeletal exam: PRESENT: ambulatory, full ROM, normal inspection Neurological exam: PRESENT: alert, awake, oriented to person, oriented to place, oriented to time Skin exam: PRESENT: dry, intact Results Laboratory Results: 05/27/19 08:02 05/27/19 08:02 05/27/19 05/27/19 08:02 08:02 WBC 6.6 RBC 4.38 Hgb 13.2 L Hct 39.6 MCV 91 MCH 30.2 MCHC 33.4 RDW 13.8 Plt Count 154 Sodium 138.3 Potassium 4.8 Chloride 105 Carbon Dioxide 21 L Anion Gap 12 BUN 12 Creatinine 0.69 Est GFR ( Amer) > 60 Glucose 162 H Calcium 9.0 05/26/19 12:55 Troponin I 0.033 EKG Comments: Telemetry presently sinus rhythm with right bundle branch block Twelve-lead EKG 05/27/2019 004 5 hours Sinus rhythm, left atrial abnormality, right bundle branch block, inferior infarct, 79 bpm, QTC 514 ms Twelve-lead EKG 05/26/2019 1240 hrs. Likely atrial tachycardia with right bundle branch block 140 bpm Impressions: Abdomen/Pelvis CT 05/26/19 00:00 IMPRESSION: Mild gastric distention. No dilated small bowel loops. Diverticulosis without evidence of diverticulitis. Severe atherosclerosis. Chest X-Ray 05/26/19 12:51 IMPRESSION: No acute findings in the chest. Assessment & Plan - Diagnosis (1) Tachycardia Plan: Episode of atrial tachycardia that terminated spontaneously. Review of EKG fabiola ws atrial tachycardia with right bundle branch aberrancy. Given that patient is maintaining sinus rhythm and he was asymptomatic with a tachycardia with a rate 140 bpm would hold off on antiarrhythmic therapy at this moment Discontinue sotalol Discontinue apixaban We will schedule for follow-up further evaluation including treatment plans for arrhythmia that might include ablation therapy. Given this first episode we will not initiate antiarrhythmic therapy (2) Right bundle branch block Is this a current diagnosis for this admission?: Yes Plan: Right bundle branch block on sinus EKG. Same right bundle aberrancy is noted d uring tachycardia Manifest conduction disease. (3) Hx of CABG Plan: History of CABG. No ischemic symptoms presently Would need to continue aspirin, beta-edward and statin not sure about home regimen which appears to consist only of lisinopril. - Notes Notes: Isolated episode of atrial tachycardia with right bundle aberrancy that terminated spontaneously. We will hold off on escalating therapy at the moment. Outpatient follow-up to evaluate and plan treatment strategy
[2019-05-27] MEDS ORDERED: QUETIAPINE FUMARATE 100 MG TABLET PO SCH (22:00)
[2019-05-27] MEDS ORDERED: ATORVASTATIN CALCIUM 10 MG TABLET PO SCH (22:00)
[2019-05-27] MEDS: ATORVASTATIN CALCIUM 20 MG TABLET PO SCH (22:18)
[2019-05-28] MEDS: LEVALBUTEROL HCL NEB 1.25 MG/3 ML AMPUL NEB PRN ×2 (00:44→06:52)
[2019-05-28] MEDS: OXYCODONE-ACETAMINOPHEN 5-325 MG TABLET PO PRN ×2 (02:26→07:36)
[2019-05-28] MEDS: NORMAL SALINE 1000 ML 1,000 ML IV PRN (05:19)
[2019-05-28] MEDS: GABAPENTIN 400 MG CAPSULE PO SCH (05:19)
[2019-05-28] MEDS: PANTOPRAZOLE SODIUM 40 MG TABLET.DR PO SCH (05:19)
[2019-05-28 05:35] LABS: ANION GAP 11 (5-19); BLOOD UREA NITROGEN 11 mg/dL (7-20); CARBON DIOXIDE 23 mmol/L (22-30); CHLORIDE 106 mmol/L (98-107); GLUCOSE 122 mg/dL (75-110); POTASSIUM 4.3 mmol/L (3.6-5.0)
--- NOTE | 2019-05-28 07:49 | EKG REPORT ---
SEVERITY:- ABNORMAL ECG - SINUS RHYTHM RIGHT BUNDLE BRANCH BLOCK INFERIOR INFARCT, AGE INDETERMINATE : Confirmed by: James Santos MD 28-May-2019 07:48:07
[2019-05-28 07:57] VITALS: BP 118/71
--- NOTE | 2019-05-28 09:30 | Left Against Medical Advice ---
Against Medical Advice Admission Date/Time: 05/26/19 19:03 Primary Care Provider: [place] [facility] Date of Patient Emigration: 05/28/19 - Diagnosis: (1) Atrial flutter with rapid ventricular response Is this a current diagnosis for this admission?: Yes (2) Abdominal pain Is this a current diagnosis for this admission?: Yes (3) CHF (congestive heart failure) Is this a current diagnosis for this admission?: Yes (4) COPD exacerbation Is this a current diagnosis for this admission?: Yes (5) Right bundle branch block Is this a current diagnosis for this admission?: Yes - Summary: Summary: Please see Admission and Progress Notes as well. ORESTES FELIX is a 63 M, who LEFT AGAINST MEDICAL ADVICE. The Patient was admitted on 05/26/19 19:03. Patient admitted and treated for atrial ablation RVR. Placed on sotalol yesterday. Patient signed out AMA this morning however when his breakfast came around he decided to stay to eat breakfast. He was adamantly cussing out nurses and when I entered the room was cussing me using all kinds of foul language. I had security come escort patient out.
== END 2019-05-28 08:42 | disposition left against medical advice (07) | DRG 309 ==
LOC: ER 12:35 → OBSVTOIN 19:03 → EH 19:03 → INTOOBSV 19:03 → 3W 23:58
PROVIDERS: ADMIT Internal Medicine; ATTEND Internal Medicine
DX: I48.92 Unspecified atrial flutter (principal); J44.1 Chronic obstructive pulmonary disease with (acute) exacerbation; I50.30 Unspecified diastolic (congestive) heart failure; F11.20 Opioid dependence, uncomplicated; Z95.1 Presence of aortocoronary bypass graft; I11.0 Hypertensive heart disease with heart failure; I45.10 Unspecified right bundle-branch block; Z53.29 Procedure and treatment not carried out because of patient's decision for other reasons; I25.10 Atherosclerotic heart disease of native coronary artery without angina pectoris; E78.5 Hyperlipidemia, unspecified; E66.9 Obesity, unspecified; K21.9 Gastro-esophageal reflux disease without esophagitis; M19.90 Unspecified osteoarthritis, unspecified site; F17.210 Nicotine dependence, cigarettes, uncomplicated; F12.90 Cannabis use, unspecified, uncomplicated; G89.29 Other chronic pain; G62.9 Polyneuropathy, unspecified; E86.0 Dehydration; K57.90 Diverticulosis of intestine, part unspecified, without perforation or abscess without bleeding; K42.9 Umbilical hernia without obstruction or gangrene; R00.0 Tachycardia, unspecified; R10.84 Generalized abdominal pain; R63.0 Anorexia; Z91.19 Patient's noncompliance with other medical treatment and regimen; Z79.82 Long term (current) use of aspirin; Z68.30 Body mass index [BMI] 30.0-30.9, adult
CPT/HCPCS: 36415; 71045; 74177; 80048; 80053; 80307; 81001; 82803; 83605; 84443; 84484; 85025; 85027; 85610; 87040; 93005; 93010; 94640; 96361; 96374; 96375; 99285; C9113; J1650; J2270; J2405; J2550; J2930; J3490; J7030; J7512

== ENCOUNTER 2020-01-28 13:25 | Emergency (ER) | payer OTHER ==
[2020-01-28] MEDS ORDERED: AMIODARONE HCL 150 MG in DEXTROSE 5%-WATER 100 ML IV ONE (13:37)
[2020-01-28] MEDS ORDERED: AMIODARONE HCL INJ 150 MG/3 ML VIAL IV ONE ×3 (13:37→13:59)
[2020-01-28] MEDS ORDERED: DEXTROSE 5%-WATER 500 ML with AMIODARONE HCL 900 MG IV PRN ×2 (13:40)
[2020-01-28] MEDS ORDERED: MIDAZOLAM 2 MG/2 ML INJ ONE (13:42)
[2020-01-28] MEDS ORDERED: MIDAZOLAM 2 MG/2 ML INJ IV ONE (13:44)
[2020-01-28] MEDS ORDERED: ATROPINE SULFATE INJ 1 MG/1 ML VIAL IV ONE (13:56)
[2020-01-28] MEDS ORDERED: DOPAMINE HCL/DEXTROSE 5%-WATER 800 MG/250 ML RTUINJ IV PRN (14:02)
[2020-01-28] MEDS ORDERED: DOPAMINE HCL/DEXTROSE 5%-WATER 800 MG/250 ML RTUINJ IV ONE (14:03)
[2020-01-28 14:27] LABS: INTERNATIONAL RATION (INR) 1.01; PROTHROMBIN TIME 13.5 SEC (11.4-15.4)
[2020-01-28 14:30] LABS: ABSOLUTE BASOPHILS # (AUTO) 0.1 10^3/uL (0.0-0.2); ABSOLUTE EOSINOPHILS # (AUTO) 0.1 10^3/uL (0.0-0.6); ABSOLUTE LYMPHOCYTES (AUTO) 1.6 10^3/uL (0.5-4.7); ABSOLUTE NEUT (AUTO) 7.4 10^3/uL (1.7-8.2); BASOPHILS % (AUTO) 0.5 % (0-2); EOSINOPHILS % (AUTO) 0.6 % (0-6); HEMATOCRIT 45.8 % (37.9-51.0); HEMOGLOBIN 15.5 g/dL (13.5-17.0); LYMPHOCYTES % (AUTO) 15.7 % (13-45); MEAN CORPUSCULAR HGB CONC 33.8 g/dL (32.0-36.0); MEAN CORPUSCULAR VOLUME 92 fl (80-97); MONOCYTES % (AUTO) 9.7 % (3-13); PLATELET COUNT 152 10^3/uL (150-450); RED BLOOD COUNT 5.01 10^6/uL (4.35-5.55); RED CELL DISTRIBUTION WIDTH 13.8 % (11.5-14.0); SEGMENTED NEUTROPHILS % (AUTO) 73.5 % (42-78); TOTAL CELLS COUNTED % (AUTO) 100 %; WHITE BLOOD COUNT 10.1 10^3/uL (4.0-10.5)
[2020-01-28 14:52] LABS: ALBUMIN 4.2 g/dL (3.5-5.0); ALKALINE PHOSPHATASE 74 U/L (38-126); ANION GAP 10 (5-19); ASPARTATE AMINO TRANSFERASE 33 U/L (17-59); BILIRUBIN,TOTAL 0.5 mg/dL (0.2-1.3); BLOOD UREA NITROGEN 18 mg/dL (7-20); CALCIUM 9.4 mg/dL (8.4-10.2); CARBON DIOXIDE 22 mmol/L (22-30); CHLORIDE 106 mmol/L (98-107); GLUCOSE 130 mg/dL (75-110); TOTAL PROTEIN 7.4 g/dL (6.3-8.2)
--- NOTE | 2020-01-28 15:01 | EKG REPORT ---
SEVERITY:- ABNORMAL ECG - JUNCTIONAL ESCAPE RHYTHM RIGHT BUNDLE BRANCH BLOCK : Confirmed by: Darrel Jackson MD 28-Jan-2020 15:00:28
--- NOTE | 2020-01-28 15:02 | EKG REPORT ---
SEVERITY:- ABNORMAL ECG - Likely VT EXTREME TACHYCARDIA WITH WIDE COMPLEX, NO FURTHER RHYTHM ANALYSIS ATTEMPTED : Confirmed by: Darrel Jackson MD 28-Jan-2020 15:01:41
--- NOTE | 2020-01-28 15:33 | ER Document Report ---
ED Cardiac - General Chief Complaint: Arrhythmia Stated Complaint: POSSIBLE CARDIAC ARRYTHMIA [facility] [[facility] - Follow up as needed Mode of Arrival: Medic Information source: Patient, Emergency Med Personnel TRAVEL OUTSIDE OF THE [place]. IN LAST 30 DAYS: No - HPI Notes: Patient is brought in by ambulance for irregular rhythm. 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 Ambulance was called. Ambulance stated that they tried amiodarone and labetalol with no change of rhythm. They state that the patient became hypotensive diaphoretic so they try to cardiovert the patient electrically with 120 J. They are unsuccessful. Patient arrives after receiving Versed so patient was somewhat of a suspect historian. On arrival patient was denying chest pain or shortness of breath. He was complained of some intermittent left shoulder pain. He was unable to tell me if it radiated. He would occasionally say that he was having trouble breathing but at other times say that he was breathing normally and had no shortness of breath. Due to the hypotension and the Versed patient gave conflicting history several times. Patient unable to tell me if the pain radiates anywhere. He is unable to tell me if anything made it better or worse. He was unable to tell me how long it is been present but from watching the patient and appear to be in intermittent pain. It appeared to be moderate in intensity the possibly severe as it would cause patient to squirm in the bed repeatedly. Patient states that he did have a coronary artery bypass graft "years ago" at the [facility]. - Related Data Allergies/Adverse Reactions: No Known Allergies Allergy (Unverified 05/26/19 14:09) Past Medical History - General Information source: Patient, Emergency Med Personnel - Social History Smoking Status: Former Smoker Frequency of alcohol use: None Drug Abuse: None Family History: Reviewed & Not Pertinent Patient has homicidal ideation: No - Past Medical History Cardiac Medical History: Reports: Hx Congestive Heart Failure, Hx Coronary Artery Disease - CABG x3, Hx Hypercholesterolemia, Hx Hypertension Pulmonary Medical History: Reports: Hx COPD, Hx Respiratory Failure - Chronic Endocrine Medical History: Denies: Hx Diabetes Mellitus Type 2, Hx Hypothyroidism GI Medical History: Reports: Hx Gastroesophageal Reflux Disease Musculoskeletal Medical History: Reports Hx Arthritis Psychiatric Medical History: Denies: Hx Depression Past Surgical History: Reports: Hx Coronary Artery Bypass Graft - Immunizations Hx Pneumococcal Vaccination: 04/18/19 Review of Systems - Review of Systems Constitutional: denies: Chills, Fever Cardiovascular: Chest pain, Palpitations Respiratory: Short of breath. denies: Cough -: Yes All other systems reviewed and negative Physical Exam - Vital signs Vitals: Pulse Ox 91 L 01/28/20 13:32 Interpretation: Hypotensive, Tachycardic, Hypoxic - General General appearance: Lethargic In distress: Moderate - HEENT Head: Normocephalic, Atraumatic Eyes: Normal Pupils: PERRL - Respiratory Respiratory status: No respiratory distress Chest status: Nontender Breath sounds: Decreased air movement Chest palpation: Normal - Cardiovascular Rhythm: Irregularly irregular, Tachycardia Murmur: No - Abdominal Inspection: Morbidly Obese Distension: Distended Bowel sounds: Hypoactive Tenderness: Tender - Has a tender but reducible umbilical hernia Organomegaly: No organomegaly - Back Back: Normal, Nontender - Extremities General upper extremity: Normal inspection, Nontender, Normal color, Normal ROM, Normal temperature General lower extremity: Normal inspection, Nontender, Normal color, Normal ROM, Normal temperature, Normal weight bearing. No: Shantal's sign - Neurological Cognition: Confused Orientation: Disoriented to time [place] Coma Scale Eye Opening: Spontaneous [place] Coma Scale Verbal: Confused Eliseo Coma Scale Motor: Obeys Commands [place] Coma Scale Total: 14 Speech: Normal Motor strength normal: LUE, RUE, LLE, RLE Sensory: Normal - Psychological Associated symptoms: Normal affect, Normal mood - Skin Skin Temperature: Cool Skin Moisture: Diaphoretic Skin Color: Pale, Mottled Course - Re-evaluation Re-evalutation: 01/28/20 15:35 Patient arrived in a wide-complex tachycardic rhythm. Before arrival patient had received Cardizem, labetalol, a fluid bolus and had been defibrillated with 120 J. All of the above interventions were unsuccessful and patient arrived with the persistent wide-complex tachycardia. It appeared to be A. fib with a bundle branch block versus ventricular tachycardia. Immediately a fluid bolus was started. Patient was given a bolus of amiodarone and started on a drip however patient continued to have persistent wide complex tachycardia with hypotension and some diaphoresis. He also began to intermittently complain of shoulder pain and shortness of breath. Therefore the patient was cardioverted with 200 J of biphasic. This was also unsuccessful. At this time the ground nuclear weapons assembly officer, Dr. Jackson arrived. We repeated the cardioversion and move the pad more anterior and posterior. We also held pressure to the anterior pads and defibrillated the patient once again with 200 J of biphasic. This was successful in converting the patient out of the wide-complex tachycardia. Patient was converted into a junctional bradycardic rhythm with a rate that was persistent in the 30s and he continued to have low blood pressure. Therefore patient was started on dopamine. Dopamine is now been titrated to 20 mics. Patient currently has stable vital signs with a O2 saturation of 92%. Heart rate is 68. Blood pressure 94/54. Patient currently denies any chest pain or shortness of breath. I have contacted the ground nuclear weapons assembly officer at [facility] who has accepted the patient. He has reviewed the EKGs and believes that shows ventricular tachycardia. The concern obviously the patient is having an ischemic cardiac event. Initial troponin is mildly elevated at 0.19. No significant electrolyte abnormalities. - Vital Signs Vital signs: Temp Pulse Resp BP Pulse Ox 98 F 21 H 91/51 L 95 01/28/20 14:21 01/28/20 15:21 01/28/20 15:21 01/28/20 15:21 - Laboratory Result Diagrams: 01/28/20 13:32 01/28/20 13:30 Laboratory results interpreted by me: 01/28/20 13:30 Glucose 130 H - Diagnostic Test Radiology reviewed: Image reviewed, Reports reviewed - EKG Interpretation by Me Rate: Tachycardia - 176 Rhythm: V.Tach Voltage: Increased voltage, Throughout When compared to previous EKG there are: Changes noted Additional EKG results interpreted by me: 01/28/20 15:34 Patient had a second EKG performed at 1400 hrs. This EKG shows a junctional escape rhythm with a rate of 35. Patient has some ST elevation in lead III as well as some ST depression in aVF and V3. Patient also has a right bundle branch block morphology on this EKG. It is changed from the previous EKG. Patient had a third EKG done at approximately 1500 hrs. This EKG also shows a junctional rhythm with a rate of 58. Patient has a right bundle branch block. Patient's EKG is changed in the previous EKG. Patient has some ST depression in the lateral leads V3 through V6. Procedures - Conscious Sedation Conscious sedation Time started: 13:45 Time completed: 14:00 Consent obtained: Yes - verbal, emergent Indication: cardioversion Last meal: unknown Prior complications: Procedural sedation Emergent conditions applies.: E. - ASA Classification Airway Evaluation: Large tongue, Obese Mallampati Classification: Class 3 Used during procedure: Suction available, IV access obtained, Pulse ox on pt., behavioral psychologist on pt. Medications administered: Versed Reversal agents: None I personally performed/intraservice time: Sedation, Procedure, 30 min or less Complications: No - no complications of versed/sedation - Additional Procedures Cardioversion/Defib Time performed: 13:54 Additional Procedures: Cardioversion/defib - 200j biphasic-succesfully converted out of v-tach Critical Care Note - Critical Care Note Total time excluding time spent on procedures (mins): 90 Comments: Approximately 90 minutes of critical care time were spent on this patient. This included numerous reassessments. And included numerous discussions with consultants. It included managing patient's medication drips. It included reviewing imaging and laboratory values as well as old records. Discharge - Discharge Clinical Impression: Ventricular tachycardia, NSTEMI (non-ST elevated myocardial infarction), Hx of CABG Hypotension Qualifiers: Hypotension type: other hypotension type Qualified Code(s): I95.89 - Other hypotension Condition: Critical Disposition: [facility]errals[facility] [[facility]] - Follow up as needed
--- NOTE | 2020-01-28 15:50 | EKG REPORT ---
SEVERITY:- ABNORMAL ECG - MULTIPLE ATRIAL PREMATURE COMPLEXES RIGHT BUNDLE BRANCH BLOCK PROBABLE SINUS BRADYCARDIA PROBABLE INFERIOR INFARCT, AGE INDETERMINATE : Confirmed by: Darrel Jackson MD 28-Jan-2020 15:49:28
[2020-01-28 16:49] VITALS: BP 97/48
[2020-01-28] MEDS ORDERED: ATROPINE SULFATE INJ 1 MG/10 ML DISP.SYRIN IV ONE (18:22)
== END 2020-01-28 16:05 | disposition short-term general hospital (02) ==
LOC: ER 13:25
DX: I21.4 Non-ST elevation (NSTEMI) myocardial infarction (principal); I47.2 Ventricular tachycardia; I95.9 Hypotension, unspecified; K42.9 Umbilical hernia without obstruction or gangrene; I45.10 Unspecified right bundle-branch block; R07.9 Chest pain, unspecified; M25.512 Pain in left shoulder; R06.02 Shortness of breath; R41.0 Disorientation, unspecified; I25.10 Atherosclerotic heart disease of native coronary artery without angina pectoris; J44.9 Chronic obstructive pulmonary disease, unspecified; Z95.1 Presence of aortocoronary bypass graft; Z87.891 Personal history of nicotine dependence
CPT/HCPCS: 93005; 99291; 96375; 96365; 96368; 36415; 85025; 85610; 80053; 84484; 93010; J2250; J0461 ×2; J1265; J7060; J0282

== ENCOUNTER 2020-02-25 12:16 | Emergency (ER) | payer OTHER ==
[2020-02-25 13:03] LABS: ABSOLUTE EOSINOPHILS # (AUTO) 0.2 10^3/uL (0.0-0.6); ABSOLUTE LYMPHOCYTES (AUTO) 1.2 10^3/uL (0.5-4.7); ABSOLUTE MONOCYTES (AUTO) 0.4 10^3/uL (0.1-1.4); ABSOLUTE NEUT (AUTO) 6.3 10^3/uL (1.7-8.2); BASOPHILS % (AUTO) 0.4 % (0-2); EOSINOPHILS % (AUTO) 1.9 % (0-6); HEMATOCRIT 47.5 % (37.9-51.0); HEMOGLOBIN 16.5 g/dL (13.5-17.0); LYMPHOCYTES % (AUTO) 14.7 % (13-45); MEAN CORPUSCULAR HEMOGLOBIN 30.9 pg (27.0-33.4); MEAN CORPUSCULAR HGB CONC 34.6 g/dL (32.0-36.0); MEAN CORPUSCULAR VOLUME 89 fl (80-97); MONOCYTES % (AUTO) 5.2 % (3-13); PLATELET COUNT 120 10^3/uL (150-450); RED BLOOD COUNT 5.32 10^6/uL (4.35-5.55); RED CELL DISTRIBUTION WIDTH 13.9 % (11.5-14.0); SEGMENTED NEUTROPHILS % (AUTO) 77.8 % (42-78); TOTAL CELLS COUNTED % (AUTO) 100 %; WHITE BLOOD COUNT 8.1 10^3/uL (4.0-10.5)
--- NOTE | 2020-02-25 13:11 | ER Document Report ---
ED Medical Screen (RME) - General Chief Complaint: Arrhythmia Stated Complaint: PALPITATIONS Time Seen by Provider: 02/25/20 13:08 [facility] [[facility]] - Follow up as needed Mode of Arrival: Medic Information source: Patient, Emergency Med Personnel Notes: DR VALENCIA NOTES 1 MONTH PRIOR Patient Name: ORESTES FELIX Date of : 1955 Patient Status: Emergency Emergency Provider: STEVE VALENCIA Date: 01/28/20 15:28 Initialization Date: 01/28/20 15:28 ED Cardiac - General Chief Complaint: Arrhythmia Stated Complaint: POSSIBLE CARDIAC ARRYTHMIA [facility] [[facility]] - Follow up as needed Mode of Arrival: Medic Information source: Patient, Emergency Med Personnel TRAVEL OUTSIDE OF THE [place] IN LAST 30 DAYS: No - HPI Notes: Patient is brought in by ambulance for irregular rhythm. 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 Rachna bland was called. Ambulance stated that they tried amiodarone and labetalol with no change of rhythm. They state that the patient became hypotensive diaphoretic so they try to cardiovert the patient electrically with 120 J. They are unsuccessful. Patient arrives after receiving Versed so patient was somewhat of a suspect historian. On arrival patient was denying chest pain or shortness of breath. He was complained of some intermittent left shoulder pain. He was unable to tell me if it radiated. He would occasionally say that he was having trouble breathing but at other times say that he was breathing normally and had no shortness of breath. Due to the hypotension and the Versed patient gave conflicting history several times. Patient unable to tell me if the pain radiates anywhere. He is unable to tell me if anything made it better or worse. He was unable to tell me how long it is been present but from watching the patient and appear to be in intermittent pain. It appeared to be moderate in intensity the possibly severe as it would cause patient to squirm in the bed repeatedly. Patient states that he did have a coronary artery bypass graft "years ago" at the [facility]. 02/25/20 12:36 - ED Nursing Note by PARKER MCLEAN Acct Num: [id number] : 1955 Patient Age: 64 Pt presented via ems on a gurney with c/o his pacemaker / defibrillator firing x5 events within 30 minutes. Pt was in stable V-Tach and recieved 150mg of Amiodarone IVP over 10 minutes. Pts hr is between 50-65 bpm. Pt had his pacemaker installed on the Jan, was to have a "tune up " tomorrow. Past medical hx includes COPD, CAD, CABG (10-15 years ago) and bi-polar. Nina Mclean RN MY NOTES TODAY 64-year-old male arrives by EMS after he was laying out his pills for his daily scheduled medications. He began to have 4-5 hits in his chest from his recently placed pacemaker. He had his 15-year-old granddaughter called 911 and EMS brought him to bed #1 here at [facility]. Patient denies any current chest p ain headache shortness of breath myalgias sensation changes patient is a fair historian but also has bipolar disease and COPD and used to smoke 2 packs a day since he was a teenager and stopped a few years ago and only smokes 2 cigarettes/day. DIALLO Souza advises patient may be exaggerating the statement a bit. Patient was seen here last month and shipped to [place] where on the January he had his pacemaker placed. Patient reports he used to drink beer and [place] liquor but quit around 15 years ago. He had a CABG in [place] greater than 5 years ago and around 10 years ago had a left carotid endarterectomy in [place] but had to have it re-vision on a yearly basis x4. Patient has scars over his left anterior neck carotid approximately 10 cm in length and also a midsternal CABG scar approximately 15 cm in length and both appear to be well-healed and quite. This is his history. Patient smokes marijuana as told to Harley LANDRUM. TRAVEL OUTSIDE OF THE [place]. IN LAST 30 DAYS: No - HPI Onset: Just prior to arrival Onset/Duration: Better Quality of pain: No pain - Patient reports he felt "like he was being electrocuted." Severity: Moderate Pain Level: 2 Associated Symptoms: Chest pain Exacerbated by: Denies Relieved by: Denies Similar symptoms previously: Yes Recently seen / treated by doctor: Yes - Related Data Allergies/Adverse Reactions: No Known Allergies Allergy (Unverified 05/26/19 14:09) Past Medical History - General Information source: Patient, Emergency Med Personnel, [facility] Records - Social History Cigarette use (# per day): Yes Chew tobacco use (# tins/day): No Frequency of alcohol use: None Drug Abuse: Marijuana Lives with: Family Family history: Reviewed & Not Pertinent - Past Medical History Cardiac Medical History: Reports: Hx Congestive Heart Failure, Hx Coronary Artery Disease - CABG x3, Hx Hypercholesterolemia, Hx Hypertension Pulmonary Medical History: Reports: Hx COPD, Hx Respiratory Failure - Chronic Endocrine Medical History: Denies: Hx Diabetes Mellitus Type 2, Hx Hypothyroidism GI Medical History: Reports: Hx Gastroesophageal Reflux Disease Musculoskeltal Medical History: Reports Hx Arthritis Psychiatric Medical History: Denies: Hx Depression Past Surgical History: Reports: Hx Coronary Artery Bypass Graft Review of Systems - Review of Systems Constitutional: See HPI, Recent illness EENT: No symptoms reported Cardiovascular: See HPI, Chest pain, Palpitations Respiratory: No symptoms reported Gastrointestinal: No symptoms reported Genitourinary: No symptoms reported Male Genitourinary: No symptoms reported Musculoskeletal: No symptoms reported Skin: No symptoms reported Hematologic/Lymphatic: No symptoms reported Neurological/Psychological: No symptoms reported Physical Exam - Vital signs Vitals: Temp 97.5 F 02/25/20 12:17 Interpretation: Normal - General General appearance: Appears well, Alert - HEENT Head: Normocephalic, Atraumatic Eyes: Normal Pupils: PERRL Nasal: Normal Mouth/Lips: Normal Mucous membranes: Normal Pharynx: Normal Neck: Normal, Other - No carotid bruits but obvious endarterectomy to left anterior neck scar is present. - Respiratory Respiratory status: No respiratory distress Chest status: Nontender Breath sounds: Normal Chest palpation: Normal - Cardiovascular Rhythm: Regular - left ant chest with healing implant wound with bulge impression of pacer evident; no s/sx of infection Heart sounds: Normal auscultation Murmur: No Course - Vital Signs Vital signs: Temp Pulse Resp BP Pulse Ox 97.5 F 02/25/20 12:17 - Laboratory Result Diagrams: 02/25/20 12:30 02/25/20 13:27 Laboratory results interpreted by me: 02/25/20 02/25/20 12:30 13:27 Plt Count 120 L BUN 24 H - Diagnostic Test Radiology reviewed: Reports reviewed - copd and pacer/cabg noted no infiltrates seen - EKG Interpretation by Me EKG shows normal: Sinus rhythm Rate: Normal Rhythm: NSR - Probable left atrial abnormality with right bundle branch block and probable inferior lateral infarct age indeterminate and lateral infarct age indeterminate Critical Care Note - Critical Care Note Comments: This case was discussed with Dr. Jackson at 1735 and he advises magnesium level and coverage antibiotics for patient to be evaluated by his children's nursery assistant in [place] tomorrow for his left sided chest pacemaker defibrillator Doctor's Discharge - Discharge Clinical Impression: Defibrillator discharge, S/P CABG (coronary artery bypass graft), pneumonia versus atelectasis on cxr Condition: Good Additional Instructions: Follow-up with your children's nursery assistant tomorrow in [place] as planned return to ER if your defibrillator fires off again. Continue with your current medications. Take Levaquin antibiotic for your left-sided pneumonia. Be aware of any knee or Achilles tendon or ankle ligament injury while on this particular medication Prescriptions: Levofloxacin [Levaquin 500 mg Tablet] 500 mg PO DAILY #7 tablet [facility] [[facility]] - Follow up as needed
--- NOTE | 2020-02-25 13:38 | RADIOLOGY REPORT (SQ) ---
EXAM DESCRIPTION: CHEST SINGLE VIEW IMAGES COMPLETED DATE/TIME: 02/25/2020 1:01 pm REASON FOR STUDY: chest pain COMPARISON: 05/26/2019 EXAM PARAMETERS: NUMBER OF VIEWS: One view. TECHNIQUE: Single frontal radiographic view of the chest acquired. RADIATION DOSE: NA LIMITATIONS: None. FINDINGS: LUNGS AND PLEURA: There is ill-defined opacification in the left base. The left hemidiaph ragm is indistinct. MEDIASTINUM AND HILAR STRUCTURES: No masses. Contour normal. HEART AND VASCULAR STRUCTURES: Heart normal in size. Normal vasculature. BONES: No acute findings. HARDWARE: Pacemaker/defibrillator. Sternotomy wires. Graft markers. OTHER: No other significant finding. IMPRESSION: There is ill-defined airspace disease in the left base, atelectasis versus pneumonia. TECHNICAL DOCUMENTATION: JOB ID: [id number] 2010 [employer]- All Rights Reserved Reading location - IP/workstation name: [email or web address]
[2020-02-25 14:08] LABS: ALBUMIN 4.2 g/dL (3.5-5.0); ALKALINE PHOSPHATASE 92 U/L (38-126); ANION GAP 7 (5-19); ASPARTATE AMINO TRANSFERASE 34 U/L (17-59); BILIRUBIN,DIRECT 0.3 mg/dL (0.0-0.4); BILIRUBIN,TOTAL 0.9 mg/dL (0.2-1.3); BLOOD UREA NITROGEN 24 mg/dL (7-20); CALCIUM 9.6 mg/dL (8.4-10.2); CARBON DIOXIDE 29 mmol/L (22-30); CHLORIDE 106 mmol/L (98-107); CREATINE KINASE 91 U/L (55-170); GLUCOSE 101 mg/dL (75-110); POTASSIUM 4.8 mmol/L (3.6-5.0); TOTAL PROTEIN 6.7 g/dL (6.3-8.2)
[2020-02-25 14:23] LABS: URINE AMPHETAMINES SCREEN NEGATIVE; URINE BARBITURATES SCREEN NEGATIVE; URINE BENZODIAZEPINES SCREEN NEGATIVE; URINE COCAINE SCREEN NEGATIVE; URINE METHADONE SCREEN NEGATIVE; URINE PHENCYCLIDINE SCREEN NEGATIVE
[2020-02-25 14:24] LABS: URINE MARIJUANA (THC) SCREEN UNCONFIRMED POSITIVE
[2020-02-25] MEDS ORDERED: IPRATROPIUM/ALBUTEROL 0.5-2.5 MG/3 ML AMPUL NEB ONE (14:40)
[2020-02-25] MEDS ORDERED: LEVOFLOXACIN 750 MG TABLET PO ONE (17:40)
[2020-02-25 19:19] VITALS: BP 164/93
--- NOTE | 2020-02-25 20:55 | EKG REPORT ---
SEVERITY:- ABNORMAL ECG - SINUS RHYTHM PROBABLE LEFT ATRIAL ABNORMALITY RIGHT BUNDLE BRANCH BLOCK PROBABLE INFEROLATERAL INFARCT, AGE INDETERM LATERAL INFARCT, AGE INDETERMINATE : Confirmed by: Darrel Jackson MD 25-Feb-2020 20:54:34
== END 2020-02-25 19:21 | disposition home or self-care (01) ==
LOC: ER 12:16
DX: R00.2 Palpitations (principal); R91.8 Other nonspecific abnormal finding of lung field; Z95.810 Presence of automatic (implantable) cardiac defibrillator; Z95.1 Presence of aortocoronary bypass graft; F17.200 Nicotine dependence, unspecified, uncomplicated; I50.9 Heart failure, unspecified; I11.0 Hypertensive heart disease with heart failure
CPT/HCPCS: 36415; 71045; 80053; 80307; 82550; 83735; 84484; 85025; 87040; 93005; 93010; 99285